=== PATIENT | male | born 1975 | race Caucasian/White ===

== ENCOUNTER 2021-11-09 05:28 | Outpatient (CLI) | payer BC ==
[~2021-11-09] VITALS: Ht 177.8 cm; Wt 104.5 kg
[2021-11-09] MEDS ORDERED: OMG1KC PO (11:16)
[2021-11-09] MEDS ORDERED: [UNRECOGNIZED DRUG - OTHER] (11:16)
[2021-11-09] MEDS ORDERED: ASPI-999 PO (11:16)
== END 2021-11-09 11:31 ==
LOC: PREOP 05:28
PROVIDERS: ATTEND Otolaryngology Otolaryngology/Facial Plastic Surgery
DX: Z01.818 Encounter for other preprocedural examination (principal); J34.2 Deviated nasal septum

== ENCOUNTER 2021-11-11 06:13 | Day surgery (SDC) | payer BC ==
[2021-11-11] VITALS (11 sets, daily range): BP systolic 133–178; BP diastolic 83–111
[~2021-11-11] VITALS: Ht 177.8 cm; Wt 104.5 kg
[~2021-11-11 06:13] MED LIST: ASPI-999 PO; OMG1KC PO; [UNRECOGNIZED DRUG - OTHER]
--- NOTE | 2021-11-11 07:00 | Progress Note-Pre Operative ---
Pre-Operative Progress Note Date of Available H&P: Nov 11, 2021 Date H&P Reviewed: Nov 11, 2021 Time H&P Reviewed: 06:30 History & Physical: H&P Reviewed, Patient Examed, No changes noted Changes from last HP none Pre-Operative Diagnosis: Bilat Chronic Sinusitis, deviated septum, hyper of inf turbs DAQUAN GUZMAN MD Nov 11, 2021 07:00
--- NOTE | 2021-11-11 07:06 | Progress Note-Post Operative ---
Post-Operative Progess Note Surgeon (s)/Zigzag Machine Operator (s) Surgeon DAQUAN GUZMAN MD Zigzag Machine Operator n/a Pre-Operative Diagnosis Bilat Chronic Sinusitis, deviated septum, hyper of inf turbs Post-Operative Diagnosis same Post-Op Procedure Note Date of Procedure: Nov 11, 2021 Name of Procedure Performed: Bilat ESS, Nasal Septoplasty, Bilat Red of Inf Trubs Description & Findings Description and Findings: n/a Anesthesia Type get Estimated Blood Loss minimal Packing dnp. Specimen(s) collected/removed Bilat Chronic Sinusitis DAQUAN GUZMAN MD Nov 11, 2021 07:06
[2021-11-11] MEDS ORDERED: LACTATED RINGERS 1,000 ML IV PRN (07:15)
[2021-11-11] MEDS ORDERED: HYDROCORTISONE 100 MG/2 ML (Solu-CORTEF) VIAL IV ONE (07:15)
[2021-11-11] MEDS ORDERED: LIDOCAINE/EPI 2% 1:200,00 (XYLOCAINE) 10 ML VIAL ONE (07:19)
[2021-11-11] MEDS ORDERED: BSS 15 ML ONE (07:20)
[2021-11-11] MEDS ORDERED: PHENYLEPHRINE 0.5% NASAL SPR (NEO-SYNEPHRINE) REG ONE (07:20)
[2021-11-11] MEDS ORDERED: COCAINE HCL 4% 2 ML SYR ONE (07:20)
[2021-11-11 07:28] LABS: BASOPHILS # (AUTO) 0.1 10^3/uL (0.0-0.1); BASOPHILS % (AUTO) 1 % (0-10); EOSINOPHILS # (AUTO) 0.3 10^3/uL (0.0-0.3); EOSINOPHILS % (AUTO) 3 % (0-10); HEMATOCRIT 42 % (40-54); HEMOGLOBIN 14.2 g/dL (13.3-17.7); LYMPHOCYTES % (AUTO) 32 % (12-44); MEAN CORPUSCULAR HEMOGLOBIN 30 pg (25-34); MEAN CORPUSCULAR HGB CONC 34 g/dL (32-36); MEAN CORPUSCULAR VOLUME 87 fL (80-99); MEAN PLATELET VOLUME 9.6 fL (9.0-12.2); MONOCYTES # (AUTO) 0.7 10^3/uL (0.0-1.0); MONOCYTES % (AUTO) 7 % (0-12); NEUTROPHILS # (AUTO) 5.1 10^3/uL (1.8-7.8); NEUTROPHILS % (AUTO) 56 % (42-75); PLATELET COUNT 258 10^3/uL (130-400); WHITE BLOOD COUNT 9.3 10^3/uL (4.3-11.0)
[2021-11-11 07:34] LABS: CALCIUM 9.1 MG/DL (8.5-10.1); CREATININE SERUM 0.92 MG/DL (0.60-1.30); POTASSIUM 3.7 MMOL/L (3.6-5.0)
[2021-11-11] MEDS ORDERED: fentaNYL INJ 100 MCG/2 ML AMP ONE (08:09)
[2021-11-11] MEDS ORDERED: MIDAZOLAM 2 MG/2 ML (VERSED) VIAL ONE (08:09)
[2021-11-11] MEDS ORDERED: proPOfol 200 MG/20 ML (DIPRIVAN) VIAL IV ONE (09:37)
[2021-11-11] MEDS ORDERED: ONDANSETRON 4 MG/2 ML (SDV) Z0FRAN ONE (09:37)
[2021-11-11] MEDS ORDERED: LIDOCAINE PF 2% 5 ML (XYLOCAINE) VIAL ONE (09:37)
[2021-11-11] MEDS ORDERED: ROCURONIUM 10 MG/ML 5 ML SYRINGE IV ONE (09:39)
[2021-11-11] MEDS ORDERED: SUGAMMADEX 500 MG/5 ML VIAL (BRIDION) IV ONE (09:45)
[2021-11-11] MEDS ORDERED: ONDANSETRON 4 MG/2 ML (SDV) Z0FRAN IVP PRN (10:00)
[2021-11-11] MEDS ORDERED: morphine INJ 10 MG/ML 1ML (SYR OR VIAL) IVP ONE (10:00)
[2021-11-11] MEDS ORDERED: fentaNYL INJ 100 MCG/2 ML AMP IVP ONE (10:00)
[2021-11-11] MEDS ORDERED: SEVOFLURANE (ULTANE) 15 ML INHAL SOLN ONE (10:14)
[2021-11-11] MEDS ORDERED: LEVO-55 PO (11:28)
[2021-11-11] MEDS ORDERED: PRD20T PO (11:33)
[2021-11-11] MEDS ORDERED: ACHD5005 PO (11:33)
[2021-11-11] MEDS ORDERED: LABETALOL HCL 20 MG/4 ML VIAL IV ONE (12:15)
--- NOTE | 2021-11-11 14:38 | Anesthesia-General Post-Op ---
General Patient Condition Mental Status/LOC: Same as Preop Cardiovascular: Satisfactory Nausea/Vomiting: Absent Respiratory: Satisfactory Pain: Controlled Complications: Absent Post Op Complications Complications None Follow Up Care/Instructions Patient Instructions None needed. Anesthesia/Patient Condition Patient Condition Patient is doing well, no complaints, stable vital signs, no apparent adverse anesthesia problems. No complications reported per nursing. UZIEL DUMONT CRNA Nov 11, 2021 14:38
== END 2021-11-11 13:30 | disposition home or self-care (01) ==
LOC: SDC 06:13
PROVIDERS: ATTEND Otolaryngology Otolaryngology/Facial Plastic Surgery
DX: J32.9 Chronic sinusitis, unspecified (principal); J34.2 Deviated nasal septum; J34.3 Hypertrophy of nasal turbinates; J32.8 Other chronic sinusitis; J33.0 Polyp of nasal cavity; J34.89 Other specified disorders of nose and nasal sinuses; E66.01 Morbid (severe) obesity due to excess calories; Z68.33 Body mass index [BMI] 33.0-33.9, adult
CPT/HCPCS: 36415; 80048; 85025; 87081; 93005